=== PATIENT | male | born 1985 | race Caucasian/White ===

== ENCOUNTER 2018-12-28 20:33 | Emergency (ER) | payer MEDICAID ==
[~2018-12-28] VITALS: Ht 180.3 cm; Wt 74.8 kg
[2018-12-28 20:34] VITALS: BP 138/83
--- NOTE | 2018-12-28 20:34 | NUR ---
PATIENT BIB [facility] TO ER CHAIR Eric
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
[2018-12-28 21:36] VITALS: BP 138/83
== END 2018-12-28 21:35 ==
LOC: MED 20:33
DX: Z04.1 Encounter for examination and observation following transport accident (principal); V89.2XXA Person injured in unspecified motor-vehicle accident, traffic, initial encounter; Y93.89 Activity, other specified; Y92.89 Other specified places as the place of occurrence of the external cause; Y99.8 Other external cause status
CPT/HCPCS: 99283